=== PATIENT | female | born 1955 | race Caucasian/White ===

== ENCOUNTER → 2023-02-03 | Outpatient (CLI) | payer MEDICARE, OTHER ==
[~2023-02-03] MED LIST: ACET500; AMAN100 PO; ASPI81CH PO; ERGO400 PO; GABA300 PO; INGREZZA40 MG PO; LAMO100 PO; Lovastatin20 MG PO; MIRT15 PO; Seroquel Xr50 MG; TOPI50 PO; Vitamin C100 M1 PO
== END | disposition home or self-care (01) ==
LOC: LAB SHORT 14:58 → LAB 14:58
DX: H66.91 Otitis media, unspecified, right ear (principal)
CPT/HCPCS: 87070; 87077; 87186; 87205

== ENCOUNTER → 2023-04-02 | Outpatient (CLI) | payer MEDICARE, OTHER ==
[2023-04-04 19:07] LABS: Adenovirus F 40/41 Not Detected (NOT DETECT); Astrovirus Not Detected (NOT DETECT); Campylobacter Sp Not Detected (NOT DETECT); Cryptosporidium Not Detected (NOT DETECT); Cyclospora Cayetanensis Not Detected (NOT DETECT); E. Coli O157 Not Detected (NOT DETECT); Entamoeba Histolytica Not Detected (NOT DETECT); Enteroaggregative E. coli-EAEC Not Detected (NOT DETECT); Enteropathogenic E. coli-EPEC Not Detected (NOT DETECT); Enterotoxigenic E. coli-ETEC Not Detected (NOT DETECT); Giardia Lamblia Not Detected (NOT DETECT); Norovirus GI/GII Not Detected (NOT DETECT); Plesiomonas Shigelloides Not Detected (NOT DETECT); Rotavirus A Not Detected (NOT DETECT); Salmonella Sp Not Detected (NOT DETECT); Sapovirus Not Detected (NOT DETECT); Shiga Toxin-prod E. coli-STEC Not Detected (NOT DETECT); Shigella/Enteroin E. coli-EIEC Not Detected (NOT DETECT); Vibrio Cholerae Not Detected (NOT DETECT); Vibrio Sp Not Detected (NOT DETECT); Yersinia Enterocolitica Not Detected (NOT DETECT)
== END | disposition home or self-care (01) ==
LOC: LAB SHORT 16:53 → LAB 16:53 → LAB SHORT 04-04 16:53
PROVIDERS: Family Medicine
DX: R19.7 Diarrhea, unspecified (principal)
CPT/HCPCS: 87507

== ENCOUNTER → 2024-04-29 | Outpatient (CLI) | payer MEDICARE, OTHER ==
[2024-04-30 13:32] LABS: Adenovirus F 40/41 Not Detected (NOT DETECT); Astrovirus Not Detected (NOT DETECT); Campylobacter Sp Not Detected (NOT DETECT); Cryptosporidium Not Detected (NOT DETECT); Cyclospora Cayetanensis Not Detected (NOT DETECT); E. Coli O157 Not Detected (NOT DETECT); Entamoeba Histolytica Not Detected (NOT DETECT); Enteroaggregative E. coli-EAEC Not Detected (NOT DETECT); Enteropathogenic E. coli-EPEC Not Detected (NOT DETECT); Enterotoxigenic E. coli-ETEC Not Detected (NOT DETECT); Giardia Lamblia Not Detected (NOT DETECT); Norovirus GI/GII Not Detected (NOT DETECT); Plesiomonas Shigelloides Not Detected (NOT DETECT); Rotavirus A Not Detected (NOT DETECT); Salmonella Sp Not Detected (NOT DETECT); Sapovirus Not Detected (NOT DETECT); Shiga Toxin-prod E. coli-STEC Not Detected (NOT DETECT); Shigella/Enteroin E. coli-EIEC Not Detected (NOT DETECT); Vibrio Cholerae Not Detected (NOT DETECT); Vibrio Sp Not Detected (NOT DETECT); Yersinia Enterocolitica Not Detected (NOT DETECT)
[2024-05-02 18:11] LABS: PANCREATIC ELASTASE,FECAL 604 ug/g (>=100)
[2024-05-02 18:13] LABS: CALPROTECTIN,FECAL 9 ug/g (<=49)
== END | disposition home or self-care (01) ==
LOC: LAB SHORT 18:33 → LAB 18:33
PROVIDERS: Family Medicine
DX: R19.7 Diarrhea, unspecified (principal)
CPT/HCPCS: 82653; 83993; 87507

== ENCOUNTER → 2024-05-30 | Outpatient (CLI) | payer MEDICARE, OTHER | LOC: LAB SHORT 12:48 → LAB 12:48 | DX: H66.92 Otitis media, unspecified, left ear (principal) | CPT/HCPCS: 87070; 87077; 87147; 87186; 87205 ==

== ENCOUNTER → 2024-06-20 | Outpatient (CLI) | payer MEDICARE, OTHER ==
[2024-06-27 12:58] LABS: CALCIUM, URINE - PER 24H 214 mg/d (100-250); CALCIUM, URINE - PER VOLUME 10.2 mg/dL; CHLORIDE, URINE - PER 24H 63 mmol/d (140-250); CHLORIDE, URINE - PER VOLUME 30 mmol/L; CITRIC ACID, URINE - PER 24H 59 mg/d (320-1240); CITRIC ACID,URINE - PER VOLUME 28 mg/L; CREATININE, URINE - PER 24H 1638 mg/d (500-1400); CREATININE, URINE - PER VOLUME 78 mg/dL; HOURS COLLECTED 24 hr; MAGNESIUM, URINE - PER VOLUME 3.8 mg/dL; MAGNESIUM, URINE PER 24H 80 mg/d (12-199); OXALATE, URINE - PER 24H 25 mg/d (13-40); OXALATE, URINE - PER VOLUME 12 mg/L; PH, URINE 6.57 (5.00-7.50); PHOSPHORUS, URINE - PER 24H 693 mg/d (400-1300); PHOSPHORUS, URINE - PER VOLUME 33 mg/dL; POTASSIUM, URINE - PER 24H 25 mmol/d (25-125); POTASSIUM, URINE - PER VOLUME 12 mmol/L; SODIUM, URINE - PER 24H 84 mmol/d (51-286); SODIUM, URINE - PER VOLUME 40 mmol/L; SULFATE, URINE - PER 24H < 5 mmol/d (6-30); SULFATE, URINE - PER VOLUME <5 mmol/L; TOTAL VOLUME 2100 mL; URIC ACID, URINE - PER 24H 458 mg/d (250-750); URIC ACID, URINE - PER VOLUME 21.8 mg/dL; URINE SUPERSATURATION INTERP Abnormal; URINE SUPERSATURATION, CAOX 5.84; URINE SUPERSATURATION, UA CALC 0.11
== END | disposition home or self-care (01) ==
LOC: LAB SHORT 13:53 → LAB 13:53
PROVIDERS: Urology
DX: N20.0 Calculus of kidney (principal); R82.991 Hypocitraturia
CPT/HCPCS: 81003; 82131; 82140; 82340; 82436; 82507; 82570; 83735; 83935; 83945; 84105; 84133; 84300; 84392; 84560